=== PATIENT | male | born 1985 | race Caucasian/White ===

== ENCOUNTER 2016-12-06 22:48 | Emergency (ER) | payer SELFPAY ==
[~2016-12-06] VITALS: Ht 177.8 cm; Wt 78.0 kg
[~2016-12-06 22:48] MED LIST: ANAPROX DS550 M1 PO; CLINDAMYCIN HC300 MG PO; NOHOMEMEDS; NORCO 5/3251 TABLET PO
[2016-12-07] MEDS ORDERED: TESSALON PERLE100 MG PO (00:12)
[2016-12-07] MEDS ORDERED: LEVAQUIN500 MG PO (00:12)
[2016-12-07 00:18] VITALS: BP 131/97
== END 2016-12-07 00:58 | disposition home or self-care (01) ==
LOC: EME 22:48
DX: J32.9 Chronic sinusitis, unspecified (principal); J18.9 Pneumonia, unspecified organism; Z87.891 Personal history of nicotine dependence
CPT/HCPCS: 99281; 99283

== ENCOUNTER 2016-12-11 23:04 | Emergency (ER) | payer SELFPAY ==
[~2016-12-11] VITALS: Ht 180.3 cm; Wt 76.0 kg
[~2016-12-11 23:04] MED LIST changes: +LEVAQUIN500 MG PO; +TESSALON PERLE100 MG PO
[2016-12-11 23:46] LABS: HEMATOCRIT 46.1 % (38.0-50.0); MCH 30.7 PG (29.0-34.0); MCHC 36.4 G/DL (30.0-36.0); MCV 84.3 FL (86-99); MEAN PLAT.VOLUME 10.7 uM^3 (9.0-12.4); PLATELET COUNT 262 K/uL (156-360); RBC DIS.WIDTH-CV 12.3 % (11.8-14.6); RBC DIS.WIDTH-SD 37.8 % (39-53); RED BLOOD COUNT 5.47 M/uL (4.00-5.50); WHITE BLOOD COUNT 13.3 K/uL (4.1-10.2)
[2016-12-11 23:53] LABS: D-DIMER ELISA < 150.00 ng/mLDDU (<230)
[2016-12-11 23:55] LABS: CHLORIDE 105 mEq/L (99-109); POTASSIUM 3.4 mEq/L (3.7-5.4); SODIUM 139 mEq/L (136-147)
[2016-12-11 23:57] LABS: GLUCOSE 98 mg/dL (70-99)
[2016-12-11 23:58] LABS: ANION GAP 16 MEQ/L (2-14)
[2016-12-12 00:01] LABS: GFR ESTIMATE (CALCULATED) > 59 mL/min/
[2016-12-12 00:02] LABS: UREA NITROGEN (BUN) 11 mg/dL (9-23)
[2016-12-12 01:08] VITALS: BP 135/94
== END 2016-12-12 01:08 | disposition home or self-care (01) ==
LOC: EME 23:04
PROVIDERS: Emergency Medicine
DX: F41.9 Anxiety disorder, unspecified (principal); R06.00 Dyspnea, unspecified; Z87.891 Personal history of nicotine dependence
CPT/HCPCS: 71020; 80048; 85027; 85379; 93005; 99281; 99284

== ENCOUNTER 2017-08-29 03:19 | Emergency (ER) | payer SELFPAY ==
[~2017-08-29] VITALS: Ht 172.7 cm; Wt 74.2 kg
[2017-08-29 03:52] LABS: HEMATOCRIT 41.6 % (38.0-50.0); HEMOGLOBIN 14.6 G/DL (12.5-16.6); MCH 31.3 PG (29.0-34.0); MCHC 35.1 G/DL (30.0-36.0); MCV 89.1 FL (86-99); PLATELET COUNT 212 K/uL (156-360); RBC DIS.WIDTH-CV 13.3 % (11.8-14.6); RBC DIS.WIDTH-SD 43.8 % (39-53); RED BLOOD COUNT 4.67 M/uL (4.00-5.50); WHITE BLOOD COUNT 8.8 K/uL (4.1-10.2)
[2017-08-29 04:00] LABS: CHLORIDE 108 mEq/L (99-109); SODIUM 142 mEq/L (136-147)
[2017-08-29 04:02] LABS: GLUCOSE 109 mg/dL (70-99)
[2017-08-29 04:06] LABS: CREATININE 0.9 mg/dL (0.6-1.3); GFR ESTIMATE (CALCULATED) > 59 mL/min/ (58.99-99999)
[2017-08-29 04:07] LABS: UREA NITROGEN (BUN) 9 mg/dL (9-23)
[2017-08-29 06:28] LABS: APPEARANCE CLEAR ((CLEAR)); BILIRUBIN NEGATIVE; BLOOD NEGATIVE; COLOR YELLOW ((YELLOW)); GLUCOSE (STRIP) NEGATIVE; KETONES NEGATIVE; LEUKOCYTES NEGATIVE; NITRITE NEGATIVE; PROTEIN (STRIP) NEGATIVE; SPECIFIC GRAVITY 1.018 (1.000-1.030); UCUL ADDED? NO
[2017-08-29] MEDS ORDERED: ZOFRAN4 MG PO (09:44)
[2017-08-29] MEDS ORDERED: BENTYL20 MG PO (09:44)
[2017-08-29 10:17] VITALS: BP 115/79
== END 2017-08-29 10:19 | disposition home or self-care (01) ==
LOC: EME 03:19
DX: R10.31 Right lower quadrant pain (principal); F17.200 Nicotine dependence, unspecified, uncomplicated
CPT/HCPCS: 74177; 80048; 81003; 85027; 99281; 99285; J3010; J7120

== ENCOUNTER → 2017-09-11 | Outpatient (CLI) | payer SELFPAY ==
[~2017-09-11] VITALS: Ht 180.3 cm; Wt 72.6 kg
[~2017-09-11] MED LIST changes: +BENTYL20 MG PO; +ZOFRAN4 MG PO
== END | disposition home or self-care (01) ==
LOC: AMB 11:47
DX: K29.70 Gastritis, unspecified, without bleeding (principal); K29.80 Duodenitis without bleeding
CPT/HCPCS: 87641; 88305; 88342 TC; 93005; J2250; J2405; J3010